=== PATIENT | male | born 1985 | race Caucasian/White ===

== ENCOUNTER 2024-04-03 09:02 | Outpatient (CLI) | payer OTHER, SELFPAY ==
--- NOTE | 2024-04-03 09:15 | FL_ITS ---
Patient: GILES DAWSON Facility:?[facility] Patient ID:?[id number] Site Patient ID:?[id number]. Site :?1985 Study:?XRay-Extremity Right Shoulder injection to -04/03/2024 11:37:34 AM Ordering Physician:GRETCHEN Final Report: Indication: Right shoulder pain. Comparison: 03/15/2024 Procedure : Informed consent was obtained. The site was marked. Time-out was performed. The skin of the right shoulder was cleansed with ChloraPrep. A sterile drape was placed. 8 cc of 1 percent lidocaine was administered for superficial anesthesia. Subsequently a 22 gauge spinal needle was introduced into the right shoulder joint under intermittent fluoroscopic guidance. Injection of 2 cc nonionic Omnipaque 240 contrast confirmed intra-articular location. Subsequently 11 cc of dilute gadolinium were injected. The needle was removed and hemostasis achieved with direct pressure. A dressing was placed. The patient tolerated the procedure well without immediate complication and was immediately sent to MRI for imaging. Total fluoroscopy time 38 seconds. Impression: Successful fluoroscopically guided right shoulder arthrogram for MRI. Dictated by Sjuit Nunez MD @ 04/03/2024 12:54:26 PM Signed by:?Sujit Nunez MD @04/03/2024 12:54:26 PM (Electronic Signature)
--- NOTE | 2024-04-03 10:15 | MR_ITS ---
[address] [address] Phone:?[phone] Fax:?[phone] Referring Physician Information: Constantine Robins M.D. [id number] [facility] [address] Phone:?[phone] Fax:?[phone] Patient:Joon Olivier D.O.B:?1985 Sex:?Male Phone:?[phone] [facility] MRN:?[id number] Exam Date:?04/03/2024 EXAM: MR ARTHROGRAM OF THE RIGHT SHOULDER CLINICAL: Right shoulder pain. Evaluate for labral tear. COMPARISON: X-rays dated 03/15/2024. TECHNICAL: Exam performed after injection of gadolinium based contrast into the right shoulder. Multiplanar multisequence MRI of the right shoulder was obtained. SEDATION: None. CONTRAST: Intra-articular gadolinium based contrast. FINDINGS: Rotator cuff: Supraspinatus/Infraspinatus: Minimal thin linear partial interstitial insertional tearing of the distal supraspinatus tendon as seen on coronal series 5 image 10-11. There is mild tendinosis of the infraspinatus tendon without evidence of significant tendon tear. No significant fatty atrophy of the muscle bellies. Teres minor: No tendinopathy, tear or atrophy. Subscapularis: Minimal thin linear partial interstitial insertional tearing of the distal tendon as seen on axial series 3 image 17. Minimal thin linear partial interstitial tearing also involves the inferior aspect of the distal tendon on axial series 3 image 19. No significant fatty atrophy of the muscle belly. Bursae: Subacromial-subdeltoid: No significant bursal fluid. Subcoracoid: No significant bursal fluid. Coracoacromial arch: Acromion morphology: Type II. No os acromiale. Acromiohumeral space: Within normal limits. Coracohumeral space: Within normal limits. Biceps tendon, long head: Intraarticular and extraarticular segments are intact without rupture, tendinopathy or displacement. Glenohumeral joint: Contrast distends the joint capsule consistent with successful intra-articular injection. Articular cartilage: No osteochondral abnormalities. Capsule: There is irregularity and ill-defined partial tearing involving the anterior inferior glenohumeral ligament. Labrum: There is tearing of the anterior and anteroinferior labrum as seen on axial series 3 images 16-21, with tearing also seen throughout the superior labrum. No perilabral cyst identified. Bones: No suspicious marrow signal alteration, fracture line or dislocation. Acromioclavicular joint: Minimal, if any changes of arthrosis. No AC joint widening. IMPRESSION: 1. Tearing of the anterior and anteroinferior labrum with tearing also seen throughout the superior labrum. 2. Sprain injury with ill-defined partial tearing involving the anterior inferior glenohumeral ligament. 3. Minimal thin linear partial interstitial tearing of the distal supraspinatus and subscapularis tendons with mild tendinosis of the distal infraspinatus tendon. 4. Intact long head biceps tendon. No glenohumeral chondral defects or fracture. JCZ Electronically signed on 04/03/2024 5:21:00 PM by Hernandez Portillo D.O.
== END 2024-04-03 09:03 | disposition home or self-care (01) ==
LOC: RAD 09:02
PROVIDERS: PCP Student in an Organized Health Care Education/Training Program; Visit Provider Orthopaedic Surgery Sports Medicine
DX: M25.511 Pain in right shoulder (principal); S43.491A Other sprain of right shoulder joint, initial encounter; S43.431A Superior glenoid labrum lesion of right shoulder, initial encounter; M75.101 Unspecified rotator cuff tear or rupture of right shoulder, not specified as traumatic
CPT/HCPCS: 23350; 73222; 77002; A9575; Q9966